=== PATIENT | female | born 1990 | race Caucasian/White ===

== ENCOUNTER 2016-07-17 17:19 | Emergency (ER) | payer OTHER ==
[2016-07-17 17:38] VITALS: BP 125/85
[2016-07-17] MEDS ORDERED: SEPTRA DS PO ONE (17:50)
[2016-07-17] MEDS ORDERED: GENTAMICIN 0.3% OPH DROPS LEFT EYE ONE (17:50)
[2016-07-17] MEDS ORDERED: TYLENOL WITH CODEINE #3 PO ONE (17:50)
--- NOTE | 2016-07-17 17:50 | PROVIDER DOCUMENTATION ---
HPI-EENT General - General Chief Complaint: Earache Stated Complaint: EAR ACHE Time Seen by Provider: 07/17/16 17:44 Source: patient Allergies/Adverse Reactions: Patient Allergies Allergy/AdvReac Type Severity Reaction Status Date / Time No Known Allergies Allergy Verified 02/20/16 22:51 Home Medications: Home Medication List Medication Instructions Recorded Confirmed Last Taken Type Nitrofurantoin Monohyd/M-Cryst 100 mg PO BID #20 capsule 02/21/16 Unknown Rx [Macrobid 100 mg Capsule] - History of Present Illness-EENT General Nature of Presenting Problem: Pt is 26 y/o F presents to the ED with L ear ache. Pt states L ear pain has been present for two days. Pt states F. Pt states [facility] and made the L ear pain worse. Pt states having drainage as well. EENT Location: reports: ear (L) Quality of Pain: reports: aching Severity: reports: moderate Onset/Duration: reports: 2 days ago Timing: reports: still present Prearrival Treatment: Initiated over the counter meds Associated Symptoms: reports: ear drainage (L). denies: change in hearing, cough, drooling, facial pain/swelling, fever, malaise, nasal congestion/drainage , poor fluid intake, poor solids intake, sinus infection, sore throat, tooth pain, voice change Locality of Occurance: Home Similar Symptoms Previously?: Yes Recently seen or treated by another doctor?: No - Ears Ear Problem Symptoms: reports: earache (L), hearing loss (L), discharge (L) Ear Problem Context: reports: none Review of Systems - Adult - REVIEW OF SYSTEMS - ADULT Constitutional: reports: chills, fever Eyes: reports: no symptoms reported Ears, Nose, Mouth & Throat: reports: ear pain (L). denies: nose pain, throat pain Cardiovascular: reports: irregular heart rate (tachy). denies: chest pain, heart murmur Respiratory: reports: no symptoms reported Gastrointestinal: reports: no symptoms reported Genitourinary: reports: no symptoms reported Musculoskeletal: reports: no symptoms reported Integumentary: reports: no symptoms reported Neurological: reports: no symptoms reported Psychiatric: reports: no symptoms reported Endocrine: reports: no symptoms reported Hematologic/Lymphatic: reports: no symptoms reported Allergic/Immunologic: reports: no symptoms reported All Other Systems: Reviewed and Negative Past History - Adult - PAST MEDICAL HISTORY-ADULT Review of Records: reports: Nursing Assessment Review, Medications Reviewed, Social history reviewed & non-contributory. Major Childhood Illnesses: reports: denies history Cardiovascular: reports: denies history Respiratory: reports: denies history Gastrointestinal: reports: denies history Obstetrical/Gynecological: reports: denies history Genitourinary: reports: denies history Musculoskeletal: reports: denies history Neurological: reports: denies history Endocrine/Immune: reports: denies history Other Conditions: reports: denies history - PRIOR SURGERIES/PROCEDURES Surgical/Procedure History: reports: none - IMMUNIZATION STATUS Childhood Immunizations: See Nurse Assessment Flu Vaccine: See Nurse Assessment - FAMILY HISTORY Family History: reviewed, not pertinent - SOCIAL HISTORY Smoking: cigarettes, less than 1 pack/day Provider spent 3-5 mins advising pt. on dangers of tobacco.: Discussed manners to quit use, and f/u contacts for add'l counseling. Substance Use: alcohol Alcohol Use Frequency: occasionally Number of drinks per typical drinking period:: 2 drinks Living Situation: family Physical Exam- EENT - Physical Exam EENT Initial Vital Signs Reviewed: Yes General Appearance: appears well, alert, no apparent distress Eye Exam: bilateral eye: normal inspection, PERRL, EOMI Ear Exam: left ear: discharge, tenderness Nasal Exam: normal inspection Throat Exam: normal mouth inspection, pharynx normal Neck: full range of motion, supple, lymphadenopathy (L side) Respiratory: chest non-tender, lungs clear, normal breath sounds, no pleuratic chest pain, no respiratory distress, no accessory muscle use Cardiovascular: normal peripheral pulses, no edema, no gallop, no JVD, no murmur , tachycardia Abdominal Exam: normal bowel sounds, non tender, soft, no organomegaly, no pulsatile mass Back Exam: normal inspection, no CVA tenderness, no vertebral tenderness Extremity: normal range of motion, non-tender, normal gait, normal inspection, no pedal edema, no calf tenderness, normal capillary refill Integumentary: normal color, normal turgor, warm/dry Neurologic: grossly normal Psych/Mental Status: normal mood/affect, oriented x 3 Progress - PLAN OF CARE/RESULTS Progress/Plan/Lab Results: Vital Signs - 24 hr 07/17/16 17:35 Temperature 100.3 F H Pulse Rate 107 H Respiratory 18 Rate Blood Pressure 125/85 O2 Sat by Pulse 100 Oximetry Attestation - Scribe Verification/Attestation Scribe:: Shahana Gray Acting as Scribe for:: Nestor Flaherty Scribe documention review:: This chart was documented by a scribe and accurately reflects the service the provider performed and the decisions made by the provider.
== END 2016-07-17 18:09 | disposition home or self-care (01) ==
LOC: P.ED 17:19
DX: H92.02 Otalgia, left ear (principal); H92.12 Otorrhea, left ear; R50.9 Fever, unspecified; R00.0 Tachycardia, unspecified; R59.0 Localized enlarged lymph nodes; F17.210 Nicotine dependence, cigarettes, uncomplicated; Z71.6 Tobacco abuse counseling
CPT/HCPCS: 99282